=== PATIENT | female | born 1960 | race Caucasian/White ===

== ENCOUNTER 2023-07-17 12:53 | Outpatient (REF) | payer MEDICARE, OTHER, SELFPAY ==
[2023-07-17 14:04] LABS: C.Difficile Negative (Negative); CDIFFEPI 027 PRESUMPTIVE NEGATIVE (Negative)
== END 2023-07-17 12:54 | disposition home or self-care (01) ==
LOC: NPINS 12:53
PROVIDERS: Family Medicine; PCP Surgery
DX: R19.7 Diarrhea, unspecified (principal)
CPT/HCPCS: 85025; 87493